=== PATIENT | male | born 1960 | race American Indian/Alaskan Native ===

== ENCOUNTER 2019-12-24 17:08 | Emergency (ER) | payer MEDICAID, OTHER ==
[2019-12-24 17:47] VITALS: BP 127/66; PULSE 66
--- NOTE | 2019-12-24 18:08 | EDM.PDOC ---
<GabriellejadShwetha - Last Filed: 12/24/19 18:03> ED HPI GENERAL MEDICAL PROBLEM - General Chief Complaint: Lower Extremity Injury/Pain Stated Complaint: SORE ON FOOT Time Seen by Provider: 12/24/19 18:03 Source of Information: Reports: Patient History Limitations: Reports: No Limitations - History of Present Illness INITIAL COMMENTS - FREE TEXT/NARRATIVE: Patient presents to the ED accompanied by law enforcement as an inmate at a facility with concerns of a wound to his plantar surface of his right foot. The patient states this has been present for approximately 1 month. It is causing pain with weight bearing. The patient is a diabetic. He states that he has been on insulin. He reports blood sugars in the 170's. The patient also reports numbness over the dorsal surface of his left hand. He states that the numbness has been present since he had a procedure on his hand for a cellulitis. The patient denies fevers, chills. Onset: Other (1 month) Location: Reports: Lower Extremity, Right (plantar surface of base of right MTPs ) Improves with: Reports: None Worsens with: Reports: None Context: Reports: Other (diabetic) Hand Pain Score (Numeric/FACES): 7 - Related Data Allergies Allergy/AdvReac Type Severity Reaction Status Date / Time ibuprofen Allergy Itching Unverified 12/24/19 17:33 Home Meds: Home Meds Aspirin [Lesley Chewable Aspirin] 81 mg PO DAILY 01/25/14 [History] Lisinopril 20 mg PO DAILY 01/25/14 [History] metFORMIN [Glucophage] 1,000 mg PO BID 01/25/14 [History] Gabapentin [Neurontin] 600 mg PO TID 07/27/14 [History] Past Medical History Cardiovascular History: Reports: Hypertension Psychiatric History: Reports: Addiction Endocrine/Metabolic History: Reports: Diabetes, Type II Social & Family History - Family History Family Medical History: Noncontributory - Tobacco Use Smoking Status *Q: Current Every Day Smoker Years of Tobacco use: 40 Packs/Tins Daily: 0.5 - Caffeine Use Caffeine Use: Reports: Tea - Recreational Drug Use Recreational Drug Use: Yes Drug Use in Last 12 Months: Yes Recreational Drug Type: Reports: Oxycodone Recreational Drug Use Frequency: Not Used In Over 2 Months Review of Systems - Review of Systems Review Of Systems: Comprehensive ROS is negative, except as noted in HPI. ED EXAM, GENERAL - Physical Exam Exam: See Below Exam Limited By: No Limitations General Appearance: Alert, No Apparent Distress Head: Atraumatic, Normocephalic Respiratory/Chest: No Respiratory Distress, Lungs Clear, Normal Breath Sounds Cardiovascular: Normal Peripheral Pulses, Regular Rate, Rhythm, No Edema, No Murmur Neurological: Alert, Oriented, Sensory/Motor Deficit (sensory deficit over dorsal surface of left hand, motor intact) Psychiatric: Normal Affect, Normal Mood Skin Exam: Warm, Dry, Intact Course - Vital Signs Last Recorded V/S: Last Vital Signs Temp 97.8 F 12/24/19 17:29 Pulse 66 12/24/19 17:29 Resp 18 12/24/19 17:29 BP 127/66 12/24/19 17:29 Pulse Ox 100 12/24/19 17:29 - Orders/Labs/Meds Orders: Active Orders 24 hr Category Date Time Status Blood Glucose Check, Bedside [RC] ONETIME Care 12/24/19 18:02 Active Labs: Bedside glucose 172 Departure - Departure Time of Disposition: 18:13 Disposition: Home, Self-Care 01 Condition: Fair Clinical Impression: Diabetic foot ulcer Qualifiers: Diabetic foot ulcer location: midfoot Diabetes mellitus type: type 2 Laterality : right Non-pressure ulcer stage: limited to breakdown of skin Qualified Code(s) : E11.621 - Type 2 diabetes mellitus with foot ulcer - Discharge Information *PRESCRIPTION DRUG MONITORING PROGRAM REVIEWED*: Not Applicable *COPY OF PRESCRIPTION DRUG MONITORING REPORT IN PATIENT TANG: Not Applicable Instructions: Diabetes Mellitus and Foot Care Forms: ED Department Discharge Additional Instructions: Apply bactroban to area 1 time daily and apply bandage over. Keep area clean and dry. Follow-up with a diabetic nurse for foot care within the next 2-3 weeks. Ensure adequate control of blood sugars. Blood sugar control will aid in the healing of skin wounds. Numbness to surface of hand may be permanent due to procedure to remove infected tissue. If issue continues may need to consult with prior surgeon. Sepsis Event Note - Evaluation Sepsis Screening Result: No Definite Risk - Focused Exam Vital Signs: Vital Signs Temp Pulse Resp BP Pulse Ox 12/24/19 17:29 97.8 F 66 18 127/66 100 Date Exam was Performed: 12/24/19 Time Exam was Performed: 18:03 <Loc Ribeiro - Last Filed: 12/24/19 18:26> ED EXAM, GENERAL - Physical Exam Ears: Normal External Exam Throat/Mouth: Normal Voice Neck: Full Range of Motion Skin Exam: Other (Diabetic foot ulcer palantar surface base great toe righ tfoot, 2x2 callous 1x1 shallow clean ulcer). No: Intact Course - Re-Assessments/Exams Free Text/Narrative Re-Assessment/Exam: 12/24/19 18:20 [facility] [place] [facility] Final Radiology Report Call: [phone] assistance Online chat: [email or web address] Name: LAN DUMONT Age: 24Years M Date: 12/24/2019 SSN: -- : 08/08/1995 Study: XR CHEST 2 VIEWS FRONTAL & LAT Requesting Physician: LOC RIBEIRO Images: 2 Addl Studies: Provided Clinical History: Contrast: Contrast Medium: Contrast Amount: Contrast Method: CONFIDENTIALITY STATEMENT This report is intended only for use by the referring physician, and only in accordance with law. If you received this in error, call [phone]. Page 1 of 1 PROCEDURE INFORMATION: Exam: XR Chest, 2 Views Exam date and time: 12/24/2019 5:30 PM Age: 24 years old Clinical indication: Chest pain TECHNIQUE: Imaging protocol: XR of the chest Views: 2 views. COMPARISON: CR CHEST 1 VIEW 09/09/2008 11:26 AM FINDINGS: Lungs: Unremarkable. No consolidation. Pleural space: Unremarkable. No pleural effusion. No pneumothorax. Heart/Mediastinum: Unremarkable. No cardiomegaly. Bones/joints: Unremarkable. IMPRESSION: No acute findings. Thank you for allowing us to participate in the care of your patient. Dictated and Authenticated by: Chema Bauman DO 12/24/2019 5:51 PM Central Time ([place] & [place] Sepsis Event Note - Focused Exam Date Exam was Performed: 12/24/19 Time Exam was Performed: 18:20
[2019-12-24] MEDS ORDERED: Ibuprofen 400 MG Tab PO ONE (18:26)
== END 2019-12-24 18:34 | disposition home or self-care (01) ==
LOC: DL.ED 17:08
DX: E11.621 Type 2 diabetes mellitus with foot ulcer (principal); L97.511 Non-pressure chronic ulcer of other part of right foot limited to breakdown of skin; Z79.4 Long term (current) use of insulin; I10 Essential (primary) hypertension; F17.210 Nicotine dependence, cigarettes, uncomplicated; Z88.8 Allergy status to other drugs, medicaments and biological substances; Z79.82 Long term (current) use of aspirin; Z79.899 Other long term (current) drug therapy
CPT/HCPCS: 82962; 99283-25; A9270-GY

== ENCOUNTER 2022-04-03 01:15 | Emergency (ER) | payer MEDICAID, OTHER ==
[2022-04-03 04:00] VITALS: BP 178/90; PULSE 68
[2022-04-03 05:16] LABS: ANION GAP 12.5 mEq/L (7-13)
[2022-04-03] MEDS: fentaNYL 100 MCG/2 ML SDV IVPUSH ONE ×2 (05:35→07:36)
[2022-04-03] MEDS: cefTRIAXone 1 GM in Sodium Chloride 0.9% 50 ML IV ONE (07:36)
== END 2022-04-03 07:40 | disposition home or self-care (01) ==
LOC: DL.ED 01:15
DX: L03.031 Cellulitis of right toe (principal); M86.9 Osteomyelitis, unspecified; I10 Essential (primary) hypertension; E11.9 Type 2 diabetes mellitus without complications; Z20.822 Contact with and (suspected) exposure to COVID-19; Z79.899 Other long term (current) drug therapy
CPT/HCPCS: 36415; 71045; 73700; 80053; 83605; 83735; 85025; 87635; 96374; 96375; 96376; 99284; J0696; J3010; U0002

== ENCOUNTER 2022-12-18 22:01 | Emergency (ER) | payer MEDICAID ==
[2022-12-18] MEDS: Sodium Chloride 0.9% 1,000 ML IV ONE (22:33)
[2022-12-18] MEDS: Sodium Chloride 0.9% 10 ML Syringe FLUSH PRN ×2 (22:40→22:42)
[2022-12-18] MEDS ORDERED: Piperacillin/Tazobactam 3.375 GM in Sodium Chloride 0.9% 100 ML IV ONE (22:41)
[2022-12-18 23:03] VITALS: BP 79/59; PULSE 96
[2022-12-18 23:06] LABS: ANION GAP 18.5 mEq/L (7-13)
[2022-12-19] MEDS: Sodium Chloride 0.9% 1,000 ML IV ONE (00:27)
== END 2022-12-19 00:41 ==
LOC: DL.ED 22:01
DX: A41.9 Sepsis, unspecified organism (principal); R65.20 Severe sepsis without septic shock; L03.115 Cellulitis of right lower limb; I10 Essential (primary) hypertension; E11.9 Type 2 diabetes mellitus without complications; Z88.8 Allergy status to other drugs, medicaments and biological substances; Z79.899 Other long term (current) drug therapy; Z79.4 Long term (current) use of insulin
CPT/HCPCS: 36415; 80053; 82947; 83605; 85025; 87040; 87077; 96365; 96367; 99285; 99285-25; J2543; J3370; J3490; J7030; J7050

== ENCOUNTER 2023-02-15 11:48 | Inpatient (IN) | payer MEDICAID ==
[2023-02-15] MEDS ORDERED: Acetaminophen 325 MG Tab PO PRN (13:25)
[2023-02-15] MEDS ORDERED: Bisacodyl 5 MG Tab PO PRN (13:25)
[2023-02-15] MEDS ORDERED: Ondansetron 4 MG/2 ML SDV IVPUSH PRN (13:25)
[2023-02-15] MEDS ORDERED: Docusate Sodium 100 MG Cap PO PRN (13:25)
[2023-02-15] MEDS ORDERED: Polyethylene Glycol 3350 Powder 17 GM Packet PO PRN (13:25)
[2023-02-15] MEDS ORDERED: 50% Dextrose in Water 50 ML Syringe IVPUSH PRN (13:34)
[2023-02-15] MEDS ORDERED: Glucagon,Human Recombinant 1 MG Vial IM PRN (13:34)
[2023-02-15] MEDS: Gabapentin 300 MG Cap PO SCH ×2 (14:03→21:01)
[2023-02-15] MEDS: Ibuprofen 200 MG Tab PO PRN ×2 (14:04→20:09)
[2023-02-15] MEDS: Lisinopril 10 MG Tab PO SCH (15:09)
[2023-02-15] MEDS ORDERED: Insulin Lispro 100 Units/ML 3 ML Vial SUBCUT SCH (16:00)
[2023-02-15] MEDS: Insulin Lispro 100 Units/ML 3 ML Vial SUBCUT SCH ×2 (17:10→21:06)
[2023-02-15] MEDS: Rosuvastatin 10 MG Tab PO SCH (21:01)
[2023-02-15] MEDS: Insulin Glarg,Human.Rec.Analog 100 Unit/ML SUBCUT SCH (21:06)
[2023-02-16] MEDS: Omeprazole 20 MG Cap.CR PO SCH (06:20)
[2023-02-16] MEDS: Gabapentin 300 MG Cap PO SCH ×3 (08:24→20:36)
[2023-02-16] MEDS: Lisinopril 10 MG Tab PO SCH (08:24)
[2023-02-16] MEDS: Aspirin 81 MG Tab.Chew PO SCH (08:25)
[2023-02-16] MEDS: Ibuprofen 200 MG Tab PO PRN ×2 (08:25→18:28)
[2023-02-16] MEDS: Furosemide 40 MG Tab PO SCH (08:25)
[2023-02-16] MEDS: Insulin Lispro 100 Units/ML 3 ML Vial SUBCUT SCH ×7 (08:27→20:40)
[2023-02-16] MEDS: Enoxaparin 40 MG/0.4 ML Syringe SUBCUT SCH (09:18)
[2023-02-16] MEDS: oxyCODONE 5 MG Tab PO PRN ×2 (12:36→19:27)
[2023-02-16] MEDS: Rosuvastatin 10 MG Tab PO SCH (20:36)
[2023-02-16] MEDS: Insulin Glarg,Human.Rec.Analog 100 Unit/ML SUBCUT SCH (20:41)
[2023-02-17] MEDS: Omeprazole 20 MG Cap.CR PO SCH ×2 (04:40→05:05)
[2023-02-17] MEDS: oxyCODONE 5 MG Tab PO PRN ×4 (04:40→21:57)
[2023-02-17] MEDS: Lisinopril 10 MG Tab PO SCH (08:23)
[2023-02-17] MEDS: Aspirin 81 MG Tab.Chew PO SCH (08:23)
[2023-02-17] MEDS: Gabapentin 300 MG Cap PO SCH ×3 (08:24→20:39)
[2023-02-17] MEDS: Insulin Lispro 100 Units/ML 3 ML Vial SUBCUT SCH ×7 (08:24→20:52)
[2023-02-17] MEDS: Furosemide 40 MG Tab PO SCH (08:24)
[2023-02-17] MEDS: Enoxaparin 40 MG/0.4 ML Syringe SUBCUT SCH (08:24)
[2023-02-17] MEDS: Ibuprofen 200 MG Tab PO PRN (13:35)
[2023-02-17] MEDS: Rosuvastatin 10 MG Tab PO SCH (20:39)
[2023-02-17] MEDS: Insulin Glarg,Human.Rec.Analog 100 Unit/ML SUBCUT SCH (20:50)
[2023-02-18] MEDS: oxyCODONE 5 MG Tab PO PRN ×2 (05:18→13:13)
[2023-02-18] MEDS: Omeprazole 20 MG Cap.CR PO SCH (05:18)
[2023-02-18] MEDS: Acetaminophen 500 MG Tab PO PRN (08:56)
[2023-02-18] MEDS: Aspirin 81 MG Tab.Chew PO SCH (08:56)
[2023-02-18] MEDS: Gabapentin 300 MG Cap PO SCH ×3 (08:56→20:29)
[2023-02-18] MEDS: Furosemide 40 MG Tab PO SCH (08:56)
[2023-02-18] MEDS: Lisinopril 10 MG Tab PO SCH (08:57)
[2023-02-18] MEDS: Enoxaparin 40 MG/0.4 ML Syringe SUBCUT SCH (08:58)
[2023-02-18] MEDS: Insulin Lispro 100 Units/ML 3 ML Vial SUBCUT SCH ×7 (08:59→20:43)
[2023-02-18] MEDS: Rosuvastatin 10 MG Tab PO SCH (20:28)
[2023-02-18] MEDS: Insulin Glarg,Human.Rec.Analog 100 Unit/ML SUBCUT SCH (20:44)
[2023-02-19] MEDS: oxyCODONE 5 MG Tab PO PRN ×3 (03:09→19:39)
[2023-02-19] MEDS: Ibuprofen 200 MG Tab PO PRN (04:06)
[2023-02-19] MEDS: Omeprazole 20 MG Cap.CR PO SCH ×2 (04:07→05:22)
[2023-02-19] MEDS: Enoxaparin 40 MG/0.4 ML Syringe SUBCUT SCH (08:20)
[2023-02-19] MEDS: Insulin Lispro 100 Units/ML 3 ML Vial SUBCUT SCH ×7 (08:20→21:01)
[2023-02-19] MEDS: Acetaminophen 500 MG Tab PO PRN ×2 (08:21→18:03)
[2023-02-19] MEDS: Aspirin 81 MG Tab.Chew PO SCH (08:22)
[2023-02-19] MEDS: Lisinopril 10 MG Tab PO SCH (08:22)
[2023-02-19] MEDS: Furosemide 40 MG Tab PO SCH (08:22)
[2023-02-19] MEDS: Gabapentin 300 MG Cap PO SCH ×3 (08:23→20:57)
[2023-02-19] MEDS: Rosuvastatin 10 MG Tab PO SCH (20:57)
[2023-02-19] MEDS: Insulin Glarg,Human.Rec.Analog 100 Unit/ML SUBCUT SCH (20:59)
[2023-02-20] MEDS: oxyCODONE 5 MG Tab PO PRN ×3 (04:34→20:17)
[2023-02-20] MEDS: Omeprazole 20 MG Cap.CR PO SCH ×2 (04:35→06:25)
[2023-02-20 06:17] LABS: BASOPHILS PERCENT AUTO 0.1 % (0.0-1.0); EOSINOPHILS PERCENT AUTO 4.9 % (1.0-3.0); HEMATOCRIT 36.3 % (40.0-54.0); HEMOGLOBIN 11.8 g/dL (14.0-18.0); LYMPHOCYTES PERCENT AUTO 35.8 % (20.5-50.1); MEAN CORPUSCULAR HEMOGLOBIN 28.9 pg (27.0-34.0); MEAN CORPUSCULAR HGB CONC 32.5 g/dL (33.0-35.0); MONOCYTES PERCENT AUTO 10.2 % (2-8); PLATELET COUNT,PLT 317 10^3/uL (150-450); RED BLOOD CELL COUNT 4.08 10^6/uL (4.6-6.2)
[2023-02-20 06:30] LABS: ANION GAP 9.8 mEq/L (7-13); CALCIUM 8.7 mg/dL (8.5-10.1); CREATININE 1.01 mg/dL (0.70-1.30); EST CRCL DRUG DOSING (CG) 82.17 mL/min; POTASSIUM,K 4.8 mmol/L (3.5-5.1)
[2023-02-20] MEDS: Lisinopril 10 MG Tab PO SCH (08:19)
[2023-02-20] MEDS: Aspirin 81 MG Tab.Chew PO SCH (08:19)
[2023-02-20] MEDS: Furosemide 40 MG Tab PO SCH (08:21)
[2023-02-20] MEDS: Gabapentin 300 MG Cap PO SCH ×3 (08:21→20:17)
[2023-02-20] MEDS: Insulin Lispro 100 Units/ML 3 ML Vial SUBCUT SCH ×7 (08:22→21:20)
[2023-02-20] MEDS: Enoxaparin 40 MG/0.4 ML Syringe SUBCUT SCH (08:22)
[2023-02-20] MEDS ORDERED: Non-Formulary Medication 1 Each (Empagliflozin [Jardiance] 25 MG Tablet) PO SCH (09:00)
[2023-02-20] MEDS: Rosuvastatin 10 MG Tab PO SCH (20:17)
[2023-02-20] MEDS: Insulin Glarg,Human.Rec.Analog 100 Unit/ML SUBCUT SCH (21:21)
[2023-02-21] MEDS: oxyCODONE 5 MG Tab PO PRN ×3 (02:04→23:42)
[2023-02-21] MEDS: Omeprazole 20 MG Cap.CR PO SCH ×2 (02:04→05:34)
[2023-02-21] MEDS: Insulin Lispro 100 Units/ML 3 ML Vial SUBCUT SCH ×7 (07:57→21:00)
[2023-02-21] MEDS: Enoxaparin 40 MG/0.4 ML Syringe SUBCUT SCH (08:00)
[2023-02-21] MEDS: Furosemide 40 MG Tab PO SCH (08:00)
[2023-02-21] MEDS: Gabapentin 300 MG Cap PO SCH ×3 (08:00→20:57)
[2023-02-21] MEDS: Lisinopril 10 MG Tab PO SCH (08:00)
[2023-02-21] MEDS: Aspirin 81 MG Tab.Chew PO SCH (08:00)
[2023-02-21] MEDS: Rosuvastatin 10 MG Tab PO SCH (20:58)
[2023-02-21] MEDS: Insulin Glarg,Human.Rec.Analog 100 Unit/ML SUBCUT SCH (21:01)
[2023-02-22] MEDS: oxyCODONE 5 MG Tab PO PRN ×2 (04:47→10:23)
[2023-02-22] MEDS: Omeprazole 20 MG Cap.CR PO SCH ×2 (04:48→05:14)
[2023-02-22] MEDS: Gabapentin 300 MG Cap PO SCH (08:13)
[2023-02-22] MEDS: Aspirin 81 MG Tab.Chew PO SCH (08:14)
[2023-02-22] MEDS: Lisinopril 10 MG Tab PO SCH (08:14)
[2023-02-22 08:17] VITALS: BP 150/75
[2023-02-22] MEDS: Furosemide 40 MG Tab PO SCH (08:17)
[2023-02-22 08:18] VITALS: PULSE 72
[2023-02-22] MEDS: Enoxaparin 40 MG/0.4 ML Syringe SUBCUT SCH (08:18)
[2023-02-22] MEDS: Insulin Lispro 100 Units/ML 3 ML Vial SUBCUT SCH ×2 (08:33)
== END 2023-02-22 10:30 | disposition home or self-care (01) | DRG 561 ==
LOC: UNDOADMIN 12:18 → DL.MS 12:18
PROVIDERS: ADMIT Internal Medicine; ATTEND Internal Medicine
DX: Z47.81 Encounter for orthopedic aftercare following surgical amputation (principal); E11.65 Type 2 diabetes mellitus with hyperglycemia; I10 Essential (primary) hypertension; E78.5 Hyperlipidemia, unspecified; E11.42 Type 2 diabetes mellitus with diabetic polyneuropathy; F17.210 Nicotine dependence, cigarettes, uncomplicated; Z79.82 Long term (current) use of aspirin; Z79.899 Other long term (current) drug therapy; Z86.19 Personal history of other infectious and parasitic diseases; Z98.890 Other specified postprocedural states
CPT/HCPCS: 36415; 80048; 82947; 85025; 97161-GP; 97165-GO; 97530-GO; 97530-GP; 99222; 99233; 99238; A9270-GY; J1650; J1815-GY

== ENCOUNTER 2023-04-13 09:28 | Emergency (ER) | payer MEDICAID ==
[2023-04-13] MEDS ORDERED: Ondansetron 4 MG/2 ML SDV IV ONE ×2 (09:31→11:52)
[2023-04-13] MEDS ORDERED: Sodium Chloride 0.9% 1,000 ML IV ONE ×3 (09:31→10:54)
[2023-04-13] MEDS ORDERED: Norepinephrine Bit/D5W Premix 250 ML IV SCH (09:45)
[2023-04-13 09:56] LABS: BASOPHILS PERCENT AUTO 0.2 % (0.0-1.0); HEMATOCRIT 27.4 % (40.0-54.0); LYMPHOCYTES PERCENT AUTO 40.5 % (20.5-50.1); MEAN CORPUSCULAR HEMOGLOBIN 29.7 pg (27.0-34.0); MEAN CORPUSCULAR HGB CONC 32.8 g/dL (33.0-35.0); MEAN CORPUSCULAR VOLUME 90.4 fL (80-100); MONOCYTES PERCENT AUTO 9.2 % (2-8); NEUTROPHILS PERCENT AUTO 47.1 % (42.2-75.2); PLATELET COUNT,PLT 166 10^3/uL (150-450); RED BLOOD CELL COUNT 3.03 10^6/uL (4.6-6.2); WHITE BLOOD CELL COUNT,WBC 10.1 10^3/uL (5.0-10.0)
[2023-04-13 10:10] LABS: PROTHROMBIN TIME 10.3 SEC (9.0-12.0); PTT,PARTIAL THROMBOPLSTIN TIME 26.1 SEC (22.0-34.0)
[2023-04-13 10:12] LABS: B-TYPE NATRIURETIC PEPTIDE,BNP 38 pg/ml (0-100)
[2023-04-13] MEDS ORDERED: Midazolam 1 MG/ML 2 ML SDV IVPUSH ONE (10:16)
[2023-04-13 10:19] LABS: APPEARANCE,URINE CLEAR (CLEAR); BILIRUBIN,URINE NEGATIVE (NEGATIVE); COLOR,URINE YELLOW (YELLOW); GLUCOSE,URINE 500 (NEGATIVE); KETONES,URINE NEGATIVE (NEGATIVE); LEUKOCYTE ESTERASE,URINE NEGATIVE (NEGATIVE); NITRITE,URINE NEGATIVE (NEGATIVE); OCCULT BLOOD,URINE TRACE-INTACT (NEGATIVE); PROTEIN,URINE >=300 (NEGATIVE); UROBILINOGEN,URINE 0.2 mg/dL (0.2-1.0)
[2023-04-13] MEDS ORDERED: Lidocaine 1% 5 ML VIAL ONE ×2 (10:20→10:27)
[2023-04-13 10:22] LABS: AMPHETAMINES,URINE NEGATIVE (NEGATIVE); BARBITURATES,URINE NEGATIVE (NEGATIVE); BENZODIAZEPINE,URINE NEGATIVE (NEGATIVE); MDMA (ECSTASY), URINE NEGATIVE (NEGATIVE); METHADONE,URINE NEGATIVE (NEGATIVE); METHAMPHETAMINES,URINE NEGATIVE (NEGATIVE); OPIATES,URINE NEGATIVE (NEGATIVE); OXYCODONE,URINE NEGATIVE (NEGATIVE); PHENCYCLIDINE,URINE NEGATIVE (NEGATIVE); TCA,URINE NEGATIVE (NEGATIVE)
[2023-04-13 10:25] LABS: ALANINE AMINOTRANSFERASE,ALT 16 U/L (16-63); ALKALINE PHOSPHATASE 58 U/L (46-116); ANION GAP 15.2 mEq/L (7-13); ASPARTATE AMNIOTRANSFERASE,AST 12 U/L (15-37); BILIRUBIN TOTAL 0.3 mg/dL (0.2-1.0); BLOOD UREA NITROGEN,BUN 23 mg/dL (7-18); BUN/CREATININE RATIO 15.1 (No establ ref range); CALCIUM 7.4 mg/dL (8.5-10.1); CARBON DIOXIDE,CO2 22 mmol/L (21-32); CHLORIDE,CL 103 mmol/L (98-107); CREATININE 1.52 mg/dL (0.70-1.30); LACTIC ACID 5.7 mmol/L (0.4-2.0); LIPASE 103 U/L (73-393); POTASSIUM,K 5.2 mmol/L (3.5-5.1); PROTEIN TOTAL,TP 5.5 g/dL (6.4-8.2); SODIUM,NA 135 mmol/L (136-145)
[2023-04-13 10:29] LABS: O2 DELIVERY DEVICE NON REBR MASK
[2023-04-13 10:30] LABS: A/G RATIO 0.57; ESTIMATED GFR 51 mL/min (>=60); ETHANOL BLOOD MEDICAL < 3 mg/dL (0); GLUCOSE RANDOM 409 mg/dL (70-99)
[2023-04-13 10:32] LABS: BASE EXCESS ARTERIAL -9 mmol/L ((-2)-(+3)); BICARBONATE,ARTERIAL 16.4 mmol/L (22-26); O2 SATURATION ARTERIAL 98 % (95-100); PCO2 ARTERIAL 35 mmHg (35-45); PH,ARTERIAL 7.29 (7.35-7.45); PO2 ARTERIAL 101 mmHg (70-100)
[2023-04-13 10:33] LABS: ALLEN TEST NOT PERFORMED
[2023-04-13 10:41] LABS: BACTERIA,URINE RARE /HPF (0-FEW/HPF); EPITHELIAL CELLS,URINE RARE /HPF (NOT SEEN); RBC,URINE 0-5 /HPF (0-5); WBC,URINE NOT SEEN /HPF (0-5/HPF)
[2023-04-13] MEDS ORDERED: Cefepime 2 GM Vial IVPUSH ONE (10:54)
[2023-04-13] MEDS ORDERED: 50% Dextrose in Water 50 ML Syringe IVPUSH PRN (10:54)
[2023-04-13] MEDS ORDERED: Glucagon,Human Recombinant 1 MG Vial IM PRN (10:54)
[2023-04-13] MEDS ORDERED: Ondansetron 4 MG/2 ML SDV ONE (11:52)
[2023-04-13] MEDS ORDERED: Lidocaine 1% 5 ML VIAL INJECT ONE (12:15)
[2023-04-13 12:42] VITALS: BP 66/48; PULSE 104
== END 2023-04-13 12:12 ==
LOC: DL.ED 09:28
DX: A41.9 Sepsis, unspecified organism (principal); R65.21 Severe sepsis with septic shock; J94.2 Hemothorax; E78.00 Pure hypercholesterolemia, unspecified; I10 Essential (primary) hypertension; E11.9 Type 2 diabetes mellitus without complications; Z79.899 Other long term (current) drug therapy; Z79.4 Long term (current) use of insulin; Z79.82 Long term (current) use of aspirin
CPT/HCPCS: 32551; 36415; 36600; 51702; 71045; 80053; 80305-QW; 80307; 81001; 82009; 82803; 83605; 83690; 83880; 84145; 84484; 85025; 85610; 85730; 87040; 93005; 96365; 96366; 96367; 96375; 96376; 99285-25; J0692; J2250; J2405; J3370; J3490; J7030; J7040

== ENCOUNTER 2023-04-24 11:38 | Inpatient (IN) | payer MEDICAID ==
[2023-04-24] MEDS ORDERED: 50% Dextrose in Water 50 ML Syringe IVPUSH PRN (14:38)
[2023-04-24] MEDS ORDERED: Glucagon,Human Recombinant 1 MG Vial IM PRN (14:38)
[2023-04-24] MEDS ORDERED: Ondansetron 4 MG Tab.DIS PO PRN (14:42)
[2023-04-24] MEDS ORDERED: Albuterol/Ipratropium 3.0-0.5 MG/3 ML Neb Soln NEB PRN (14:42)
[2023-04-24] MEDS ORDERED: Gabapentin 300 MG Cap PO SCH (14:45)
[2023-04-24] MEDS: Acetaminophen 325 MG Tab PO PRN ×2 (15:31→20:53)
[2023-04-24] MEDS: Gabapentin 300 MG Cap PO SCH ×2 (15:31→20:53)
[2023-04-24] MEDS ORDERED: Insulin Lispro 100 Units/ML 3 ML Vial SUBCUT SCH (16:00)
[2023-04-24] MEDS: oxyCODONE 5 MG Tab PO PRN ×2 (16:24→22:19)
[2023-04-24] MEDS: Sennosides/Docusate Sodium 50-8.6 MG Tab PO SCH (20:48)
[2023-04-24] MEDS: atorvaSTATin 20 MG Tab PO SCH (20:53)
[2023-04-24] MEDS: Metoprolol Tartrate 25 MG Tab PO SCH (20:54)
[2023-04-24] MEDS: Insulin Glarg,Human.Rec.Analog 100 Unit/ML SUBCUT SCH (20:56)
[2023-04-25] MEDS: oxyCODONE 5 MG Tab PO PRN ×4 (05:17→23:35)
[2023-04-25] MEDS: Pantoprazole 40 MG Tab.CR PO SCH (05:17)
[2023-04-25 06:27] LABS: BASOPHILS PERCENT AUTO 0.1 % (0.0-1.0); EOSINOPHILS PERCENT AUTO 3.8 % (1.0-3.0); HEMATOCRIT 31.1 % (40.0-54.0); HEMOGLOBIN 9.9 g/dL (14.0-18.0); LYMPHOCYTES PERCENT AUTO 14.2 % (20.5-50.1); MEAN CORPUSCULAR HGB CONC 31.8 g/dL (33.0-35.0); MEAN CORPUSCULAR VOLUME 88.1 fL (80-100); MONOCYTES PERCENT AUTO 9.4 % (2-8); NEUTROPHILS PERCENT AUTO 72.5 % (42.2-75.2); PLATELET COUNT,PLT 550 10^3/uL (150-450); RED BLOOD CELL COUNT 3.53 10^6/uL (4.6-6.2); WHITE BLOOD CELL COUNT,WBC 9.4 10^3/uL (5.0-10.0)
[2023-04-25 06:48] LABS: A/G RATIO 0.42; ALBUMIN 2.2 g/dL (3.4-5.0); ANION GAP 13.4 mEq/L (7-13); BILIRUBIN TOTAL 0.6 mg/dL (0.2-1.0); BUN/CREATININE RATIO 19.4 (No establ ref range); CALCIUM 8.2 mg/dL (8.5-10.1); CREATININE 1.08 mg/dL (0.70-1.30); EST CRCL DRUG DOSING (CG) 67.73 mL/min; MAGNESIUM 2.2 mg/dL (1.8-2.4); POTASSIUM,K 4.4 mmol/L (3.5-5.1); PROTEIN TOTAL,TP 7.5 g/dL (6.4-8.2)
[2023-04-25] MEDS: Potassium Chloride 10 MEQ Tab.ER PO SCH (08:37)
[2023-04-25] MEDS: Clopidogrel 75 MG Tab PO SCH (08:38)
[2023-04-25] MEDS: Insulin Lispro 100 Units/ML 3 ML Vial SUBCUT SCH ×3 (08:38→16:45)
[2023-04-25] MEDS: Gabapentin 300 MG Cap PO SCH ×3 (08:38→20:49)
[2023-04-25] MEDS: Empagliflozin 25 MG Tab PO SCH (08:38)
[2023-04-25] MEDS: Aspirin 81 MG Tab.EC PO SCH (08:38)
[2023-04-25] MEDS: Metoprolol Tartrate 25 MG Tab PO SCH ×2 (08:43→20:50)
[2023-04-25] MEDS: Acetaminophen 325 MG Tab PO PRN (14:34)
[2023-04-25] MEDS: atorvaSTATin 20 MG Tab PO SCH (20:49)
[2023-04-25] MEDS: Insulin Glarg,Human.Rec.Analog 100 Unit/ML SUBCUT SCH (20:52)
[2023-04-25] MEDS: Sennosides/Docusate Sodium 50-8.6 MG Tab PO SCH (23:22)
[2023-04-26] MEDS: Pantoprazole 40 MG Tab.CR PO SCH (05:49)
[2023-04-26] MEDS: oxyCODONE 5 MG Tab PO PRN ×3 (05:49→18:28)
[2023-04-26] MEDS: Empagliflozin 25 MG Tab PO SCH (08:43)
[2023-04-26] MEDS: Metoprolol Tartrate 25 MG Tab PO SCH ×2 (08:44→20:30)
[2023-04-26] MEDS: Aspirin 81 MG Tab.EC PO SCH (08:46)
[2023-04-26] MEDS: Potassium Chloride 10 MEQ Tab.ER PO SCH (08:47)
[2023-04-26] MEDS: Furosemide 40 MG Tab PO SCH (08:47)
[2023-04-26] MEDS: Clopidogrel 75 MG Tab PO SCH (08:48)
[2023-04-26] MEDS: Gabapentin 300 MG Cap PO SCH ×3 (08:48→20:29)
[2023-04-26] MEDS: Insulin Lispro 100 Units/ML 3 ML Vial SUBCUT SCH ×3 (08:52→17:26)
[2023-04-26] MEDS: Sennosides/Docusate Sodium 50-8.6 MG Tab PO SCH (20:29)
[2023-04-26] MEDS: atorvaSTATin 20 MG Tab PO SCH (20:30)
[2023-04-26] MEDS: Insulin Glarg,Human.Rec.Analog 100 Unit/ML SUBCUT SCH (20:47)
[2023-04-27] MEDS: oxyCODONE 5 MG Tab PO PRN ×4 (00:36→19:32)
[2023-04-27] MEDS: Pantoprazole 40 MG Tab.CR PO SCH (06:40)
[2023-04-27] MEDS: Aspirin 81 MG Tab.EC PO SCH (08:16)
[2023-04-27] MEDS: Empagliflozin 25 MG Tab PO SCH (08:16)
[2023-04-27] MEDS: Potassium Chloride 10 MEQ Tab.ER PO SCH (08:16)
[2023-04-27] MEDS: Gabapentin 300 MG Cap PO SCH ×3 (08:16→21:59)
[2023-04-27] MEDS: Clopidogrel 75 MG Tab PO SCH (08:16)
[2023-04-27] MEDS: Insulin Lispro 100 Units/ML 3 ML Vial SUBCUT SCH ×3 (08:17→17:07)
[2023-04-27] MEDS: Metoprolol Tartrate 25 MG Tab PO SCH ×2 (08:17→22:00)
[2023-04-27] MEDS: Acetaminophen 325 MG Tab PO PRN ×2 (10:28→21:56)
[2023-04-27] MEDS: Insulin Glarg,Human.Rec.Analog 100 Unit/ML SUBCUT SCH (21:55)
[2023-04-27] MEDS: Sennosides/Docusate Sodium 50-8.6 MG Tab PO SCH (21:58)
[2023-04-27] MEDS: atorvaSTATin 20 MG Tab PO SCH (21:58)
[2023-04-28] MEDS: oxyCODONE 5 MG Tab PO PRN ×4 (02:48→21:04)
[2023-04-28] MEDS: Pantoprazole 40 MG Tab.CR PO SCH (06:18)
[2023-04-28] MEDS: Acetaminophen 325 MG Tab PO PRN (06:18)
[2023-04-28] MEDS: Potassium Chloride 10 MEQ Tab.ER PO SCH (08:31)
[2023-04-28] MEDS: Furosemide 40 MG Tab PO SCH (08:31)
[2023-04-28] MEDS: Metoprolol Tartrate 25 MG Tab PO SCH ×2 (08:31→21:03)
[2023-04-28] MEDS: Empagliflozin 25 MG Tab PO SCH (08:31)
[2023-04-28] MEDS: Aspirin 81 MG Tab.EC PO SCH (08:31)
[2023-04-28] MEDS: Clopidogrel 75 MG Tab PO SCH (08:32)
[2023-04-28] MEDS: Gabapentin 300 MG Cap PO SCH ×3 (08:32→21:02)
[2023-04-28] MEDS: Insulin Lispro 100 Units/ML 3 ML Vial SUBCUT SCH ×3 (08:40→17:29)
[2023-04-28] MEDS: atorvaSTATin 20 MG Tab PO SCH (21:02)
[2023-04-28] MEDS: Sennosides/Docusate Sodium 50-8.6 MG Tab PO SCH (21:02)
[2023-04-28] MEDS: Insulin Glarg,Human.Rec.Analog 100 Unit/ML SUBCUT SCH (21:24)
[2023-04-29] MEDS: oxyCODONE 5 MG Tab PO PRN ×3 (02:56→20:17)
[2023-04-29] MEDS: Pantoprazole 40 MG Tab.CR PO SCH ×2 (04:29→05:11)
[2023-04-29] MEDS: Gabapentin 300 MG Cap PO SCH ×3 (08:57→20:17)
[2023-04-29] MEDS: Potassium Chloride 10 MEQ Tab.ER PO SCH (08:57)
[2023-04-29] MEDS: Metoprolol Tartrate 25 MG Tab PO SCH ×2 (08:58→20:18)
[2023-04-29] MEDS: Clopidogrel 75 MG Tab PO SCH (08:58)
[2023-04-29] MEDS: Aspirin 81 MG Tab.EC PO SCH (08:58)
[2023-04-29] MEDS: Empagliflozin 25 MG Tab PO SCH (08:58)
[2023-04-29] MEDS: Insulin Lispro 100 Units/ML 3 ML Vial SUBCUT SCH ×3 (09:02→19:53)
[2023-04-29] MEDS: Sennosides/Docusate Sodium 50-8.6 MG Tab PO SCH (20:17)
[2023-04-29] MEDS: atorvaSTATin 20 MG Tab PO SCH (20:17)
[2023-04-29] MEDS: Insulin Glarg,Human.Rec.Analog 100 Unit/ML SUBCUT SCH (20:18)
[2023-04-30] MEDS: oxyCODONE 5 MG Tab PO PRN ×4 (03:09→21:17)
[2023-04-30] MEDS: Pantoprazole 40 MG Tab.CR PO SCH (05:57)
[2023-04-30] MEDS: Metoprolol Tartrate 25 MG Tab PO SCH ×2 (09:02→21:16)
[2023-04-30] MEDS: Aspirin 81 MG Tab.EC PO SCH (09:02)
[2023-04-30] MEDS: Gabapentin 300 MG Cap PO SCH ×3 (09:04→21:17)
[2023-04-30] MEDS: Empagliflozin 25 MG Tab PO SCH (09:04)
[2023-04-30] MEDS: Clopidogrel 75 MG Tab PO SCH (09:04)
[2023-04-30] MEDS: Potassium Chloride 10 MEQ Tab.ER PO SCH (09:05)
[2023-04-30] MEDS: Insulin Lispro 100 Units/ML 3 ML Vial SUBCUT SCH ×3 (09:11→17:19)
[2023-04-30] MEDS: Insulin Glarg,Human.Rec.Analog 100 Unit/ML SUBCUT SCH (21:15)
[2023-04-30] MEDS: atorvaSTATin 20 MG Tab PO SCH (21:16)
[2023-04-30] MEDS: Sennosides/Docusate Sodium 50-8.6 MG Tab PO SCH (21:17)
[2023-05-01] MEDS: Pantoprazole 40 MG Tab.CR PO SCH ×2 (03:20→07:47)
[2023-05-01] MEDS: oxyCODONE 5 MG Tab PO PRN ×4 (03:20→21:37)
[2023-05-01 06:42] LABS: BASOPHILS PERCENT AUTO 0.1 % (0.0-1.0); EOSINOPHILS PERCENT AUTO 1.1 % (1.0-3.0); HEMATOCRIT 31.1 % (40.0-54.0); HEMOGLOBIN 9.8 g/dL (14.0-18.0); LYMPHOCYTES PERCENT AUTO 16.5 % (20.5-50.1); MEAN CORPUSCULAR HEMOGLOBIN 27.5 pg (27.0-34.0); MEAN CORPUSCULAR HGB CONC 31.5 g/dL (33.0-35.0); MEAN CORPUSCULAR VOLUME 87.4 fL (80-100); MONOCYTES PERCENT AUTO 15.5 % (2-8); NEUTROPHILS PERCENT AUTO 66.8 % (42.2-75.2); PLATELET COUNT,PLT 498 10^3/uL (150-450); RED BLOOD CELL COUNT 3.56 10^6/uL (4.6-6.2); WHITE BLOOD CELL COUNT,WBC 8.4 10^3/uL (5.0-10.0)
[2023-05-01 07:07] LABS: A/G RATIO 0.36; ALBUMIN 2.1 g/dL (3.4-5.0); ANION GAP 12.9 mEq/L (7-13); BILIRUBIN TOTAL 0.8 mg/dL (0.2-1.0); CALCIUM 8.4 mg/dL (8.5-10.1); CREATININE 1.16 mg/dL (0.70-1.30); EST CRCL DRUG DOSING (CG) 63.06 mL/min; MAGNESIUM 2.3 mg/dL (1.8-2.4); POTASSIUM,K 3.9 mmol/L (3.5-5.1)
[2023-05-01] MEDS: Insulin Lispro 100 Units/ML 3 ML Vial SUBCUT SCH ×3 (08:26→17:18)
[2023-05-01] MEDS: Potassium Chloride 10 MEQ Tab.ER PO SCH (09:20)
[2023-05-01] MEDS: Aspirin 81 MG Tab.EC PO SCH (09:21)
[2023-05-01] MEDS: Empagliflozin 25 MG Tab PO SCH (09:21)
[2023-05-01] MEDS: Furosemide 40 MG Tab PO SCH (09:21)
[2023-05-01] MEDS: Clopidogrel 75 MG Tab PO SCH (09:21)
[2023-05-01] MEDS: Gabapentin 300 MG Cap PO SCH ×3 (09:22→21:47)
[2023-05-01] MEDS: Metoprolol Tartrate 25 MG Tab PO SCH ×2 (09:23→21:38)
[2023-05-01] MEDS: Insulin Glarg,Human.Rec.Analog 100 Unit/ML SUBCUT SCH (21:36)
[2023-05-01] MEDS: atorvaSTATin 20 MG Tab PO SCH (21:39)
[2023-05-02] MEDS: oxyCODONE 5 MG Tab PO PRN ×4 (03:41→23:02)
[2023-05-02] MEDS: Pantoprazole 40 MG Tab.CR PO SCH (06:33)
[2023-05-02] MEDS: Aspirin 81 MG Tab.EC PO SCH (08:00)
[2023-05-02] MEDS: Clopidogrel 75 MG Tab PO SCH (08:00)
[2023-05-02] MEDS: Empagliflozin 25 MG Tab PO SCH (08:00)
[2023-05-02] MEDS: Gabapentin 300 MG Cap PO SCH ×3 (08:00→23:06)
[2023-05-02] MEDS: Potassium Chloride 10 MEQ Tab.ER PO SCH (08:01)
[2023-05-02] MEDS: Metoprolol Tartrate 25 MG Tab PO SCH ×2 (08:01→23:01)
[2023-05-02] MEDS: Insulin Lispro 100 Units/ML 3 ML Vial SUBCUT SCH ×3 (08:02→17:01)
[2023-05-02] MEDS: Acetaminophen 325 MG Tab PO PRN ×2 (08:06→21:07)
[2023-05-02] MEDS: atorvaSTATin 20 MG Tab PO SCH (21:06)
[2023-05-02] MEDS: Insulin Glarg,Human.Rec.Analog 100 Unit/ML SUBCUT SCH (21:06)
[2023-05-03] MEDS: Pantoprazole 40 MG Tab.CR PO SCH (05:02)
[2023-05-03] MEDS: oxyCODONE 5 MG Tab PO PRN ×4 (05:02→23:37)
[2023-05-03] MEDS: Aspirin 81 MG Tab.EC PO SCH (09:40)
[2023-05-03] MEDS: Empagliflozin 25 MG Tab PO SCH (09:41)
[2023-05-03] MEDS: Potassium Chloride 10 MEQ Tab.ER PO SCH (09:41)
[2023-05-03] MEDS: Furosemide 40 MG Tab PO SCH (09:41)
[2023-05-03] MEDS: Metoprolol Tartrate 25 MG Tab PO SCH ×2 (09:43→22:34)
[2023-05-03] MEDS: Insulin Lispro 100 Units/ML 3 ML Vial SUBCUT SCH ×3 (09:44→16:52)
[2023-05-03] MEDS: Gabapentin 300 MG Cap PO SCH ×3 (10:09→22:34)
[2023-05-03] MEDS: Clopidogrel 75 MG Tab PO SCH (10:09)
[2023-05-03] MEDS: Acetaminophen 325 MG Tab PO PRN ×2 (15:02→22:49)
[2023-05-03] MEDS: atorvaSTATin 20 MG Tab PO SCH (22:34)
[2023-05-03] MEDS: Insulin Glarg,Human.Rec.Analog 100 Unit/ML SUBCUT SCH (22:36)
[2023-05-04] MEDS: oxyCODONE 5 MG Tab PO PRN ×2 (05:48→11:40)
[2023-05-04] MEDS: Pantoprazole 40 MG Tab.CR PO SCH (05:48)
[2023-05-04 07:39] VITALS: BP 136/74; PULSE 72
[2023-05-04] MEDS: Insulin Lispro 100 Units/ML 3 ML Vial SUBCUT SCH ×2 (08:12→12:14)
[2023-05-04] MEDS: Empagliflozin 25 MG Tab PO SCH (08:13)
[2023-05-04] MEDS: Gabapentin 300 MG Cap PO SCH (08:13)
[2023-05-04] MEDS: Potassium Chloride 10 MEQ Tab.ER PO SCH (08:13)
[2023-05-04] MEDS: Clopidogrel 75 MG Tab PO SCH (08:13)
[2023-05-04] MEDS: Aspirin 81 MG Tab.EC PO SCH (08:14)
[2023-05-04] MEDS: Metoprolol Tartrate 25 MG Tab PO SCH (08:14)
== END 2023-05-04 12:34 | disposition home or self-care (01) | DRG 947 ==
LOC: DL.MS 13:07 → UNDOADMIN 13:07 → DL.MS 14:42
PROVIDERS: ADMIT Internal Medicine; ATTEND Internal Medicine
DX: R53.81 Other malaise (principal); I21.4 Non-ST elevation (NSTEMI) myocardial infarction; J94.2 Hemothorax; I10 Essential (primary) hypertension; E78.5 Hyperlipidemia, unspecified; I25.10 Atherosclerotic heart disease of native coronary artery without angina pectoris; E11.51 Type 2 diabetes mellitus with diabetic peripheral angiopathy without gangrene; E78.00 Pure hypercholesterolemia, unspecified; E11.65 Type 2 diabetes mellitus with hyperglycemia; E11.40 Type 2 diabetes mellitus with diabetic neuropathy, unspecified; K21.9 Gastro-esophageal reflux disease without esophagitis; F17.210 Nicotine dependence, cigarettes, uncomplicated; Z79.82 Long term (current) use of aspirin; Z79.899 Other long term (current) drug therapy; Z89.611 Acquired absence of right leg above knee; Z79.4 Long term (current) use of insulin; Z95.5 Presence of coronary angioplasty implant and graft
CPT/HCPCS: 36415; 80053; 82947; 83735; 85025; 94060; 97110-GP; 97161-GP; 97165-GO; 97530-GO; 97530-GP; 97535-GO; 99305; 99308; 99315; A9270-GY; J1815-GY

== ENCOUNTER 2023-06-17 20:28 | Emergency (ER) | payer MEDICAID ==
[2023-06-17] MEDS ORDERED: Sodium Chloride 0.9% 10 ML Syringe FLUSH PRN (21:57)
[2023-06-17] MEDS ORDERED: Ketorolac 30 MG/ML SDV IVPUSH ONE (22:08)
[2023-06-17] MEDS ORDERED: Acetaminophen 500 MG Tab PO ONE (22:08)
[2023-06-17 22:22] LABS: EOSINOPHILS PERCENT AUTO 0.1 % (1.0-3.0); HEMATOCRIT 44.3 % (40.0-54.0); HEMOGLOBIN 14.5 g/dL (14.0-18.0); LYMPHOCYTES PERCENT AUTO 8.5 % (20.5-50.1); MEAN CORPUSCULAR HEMOGLOBIN 27.3 pg (27.0-34.0); MEAN CORPUSCULAR HGB CONC 32.7 g/dL (33.0-35.0); MEAN CORPUSCULAR VOLUME 83.3 fL (80-100); MONOCYTES PERCENT AUTO 7.2 % (2-8); NEUTROPHILS PERCENT AUTO 84.2 % (42.2-75.2); PLATELET COUNT,PLT 291 10^3/uL (150-450); RED BLOOD CELL COUNT 5.32 10^6/uL (4.6-6.2); WHITE BLOOD CELL COUNT,WBC 9.2 10^3/uL (5.0-10.0)
[2023-06-17 22:38] LABS: ALBUMIN 3.2 g/dL (3.4-5.0); ANION GAP 16.5 mEq/L (7-13); BILIRUBIN TOTAL 2.9 mg/dL (0.2-1.0); BUN/CREATININE RATIO 15.6 (No establ ref range); C-REACTIVE PROTEIN 3.01 ng/dL (<=0.30); CALCIUM 9.5 mg/dL (8.5-10.1); CREATININE 0.96 mg/dL (0.70-1.30); EST CRCL DRUG DOSING (CG) 86.45 mL/min; POTASSIUM,K 4.5 mmol/L (3.5-5.1); PROTEIN TOTAL,TP 8.9 g/dL (6.4-8.2)
[2023-06-17 22:41] LABS: LACTIC ACID 1.5 mmol/L (0.4-2.0)
[2023-06-17 22:44] LABS: A/G RATIO 0.56
[2023-06-17] MEDS ORDERED: Iopamidol 755 Mg/ML 100 ML Bottle IVPUSH ONE (23:07)
[2023-06-18] MEDS ORDERED: fentaNYL 100 MCG/2 ML SDV IVPUSH ONE (01:12)
[2023-06-18 01:31] VITALS: BP 113/66; PULSE 123
== END 2023-06-18 01:50 ==
LOC: DL.ED 20:28
DX: J43.9 Emphysema, unspecified (principal); E87.1 Hypo-osmolality and hyponatremia; R74.8 Abnormal levels of other serum enzymes; Q44.1 Other congenital malformations of gallbladder; I10 Essential (primary) hypertension; E78.00 Pure hypercholesterolemia, unspecified; E11.9 Type 2 diabetes mellitus without complications; Z79.82 Long term (current) use of aspirin; Z79.4 Long term (current) use of insulin; Z79.02 Long term (current) use of antithrombotics/antiplatelets; Z79.899 Other long term (current) drug therapy
CPT/HCPCS: 36415; 71260; 72128; 72131; 80053; 83605; 85025; 86140; 87040; 87077; 87186; 96374; 96375; 99284; 99285-25; A9270-GY; J1885; J3010; J3490; Q9967

== ENCOUNTER 2023-11-20 18:10 | Emergency (ER) | payer MEDICAID ==
[2023-11-20] MEDS: Sodium Chloride 0.9% 10 ML Syringe FLUSH PRN (18:08)
[2023-11-20 18:21] LABS: EOSINOPHILS PERCENT AUTO 0.5 % (1.0-3.0); HEMATOCRIT 41.9 % (40.0-54.0); HEMOGLOBIN 14.1 g/dL (14.0-18.0); LYMPHOCYTES PERCENT AUTO 19.9 % (20.5-50.1); MEAN CORPUSCULAR HEMOGLOBIN 28.8 pg (27.0-34.0); MEAN CORPUSCULAR HGB CONC 33.7 g/dL (33.0-35.0); MEAN CORPUSCULAR VOLUME 85.5 fL (80-100); MONOCYTES PERCENT AUTO 9.8 % (2-8); NEUTROPHILS PERCENT AUTO 69.8 % (42.2-75.2); PLATELET COUNT,PLT 215 10^3/uL (150-450); WHITE BLOOD CELL COUNT,WBC 8.3 10^3/uL (5.0-10.0)
[2023-11-20 18:30] VITALS: BP 171/75; PULSE 98
[2023-11-20 18:43] LABS: ALBUMIN 2.7 g/dL (3.4-5.0); ANION GAP 12.9 mEq/L (7-13); BILIRUBIN TOTAL 0.7 mg/dL (0.2-1.0); BUN/CREATININE RATIO 14.1 (No establ ref range); C-REACTIVE PROTEIN 7.71 ng/dL (<=0.50); CALCIUM 8.5 mg/dL (8.5-10.1); CREATININE 0.78 mg/dL (0.70-1.30); EST CRCL DRUG DOSING (CG) 105.01 mL/min; POTASSIUM,K 2.9 mmol/L (3.5-5.1); PROTEIN TOTAL,TP 7.8 g/dL (6.4-8.2)
[2023-11-20 18:45] LABS: A/G RATIO 0.53
[2023-11-20 18:46] LABS: LACTIC ACID 1.2 mmol/L (0.4-2.0)
[2023-11-20] MEDS: Potassium Chloride 10 MEQ Tab.ER PO ONE (19:05)
[2023-11-20] MEDS: Ketorolac 30 MG/ML SDV IVPUSH ONE (19:10)
[2023-11-20] MEDS: Iopamidol 612 MG/ML 100 ML Bottle IVPUSH ONE (19:47)
[2023-11-20] MEDS: Cefepime 2 GM Vial IVPUSH ONE (21:29)
[2023-11-20] MEDS: metroNIDAZOLE 250 MG Tab PO ONE (21:29)
== END 2023-11-20 22:40 ==
LOC: DL.ED 18:10
DX: M86.9 Osteomyelitis, unspecified (principal); I10 Essential (primary) hypertension; E78.00 Pure hypercholesterolemia, unspecified; E11.9 Type 2 diabetes mellitus without complications; I25.2 Old myocardial infarction; Z79.899 Other long term (current) drug therapy; Z79.82 Long term (current) use of aspirin; Z95.5 Presence of coronary angioplasty implant and graft
CPT/HCPCS: 36415; 73701; 80053; 83605; 85025; 86140; 87040; 96365; 96366; 96375; 99285; A9270; J0692; J1885; J3370; J7050; Q9967; J3490

== ENCOUNTER 2024-04-16 23:45 | Emergency (ER) | payer MEDICAID ==
[2024-04-17] MEDS: Sodium Chloride 0.9% 10 ML Syringe FLUSH PRN (00:25)
[2024-04-17 00:38] VITALS: BP 109/72; PULSE 83
[2024-04-17 00:48] LABS: BASOPHILS PERCENT AUTO 0.2 % (0.0-1.0); EOSINOPHILS PERCENT AUTO 2.6 % (1.0-3.0); HEMATOCRIT 36.2 % (40.0-54.0); HEMOGLOBIN 11.9 g/dL (14.0-18.0); LYMPHOCYTES PERCENT AUTO 26.7 % (20.5-50.1); MEAN CORPUSCULAR HEMOGLOBIN 28.3 pg (27.0-34.0); MEAN CORPUSCULAR HGB CONC 32.9 g/dL (33.0-35.0); MEAN CORPUSCULAR VOLUME 86.2 fL (80-100); MONOCYTES PERCENT AUTO 8.7 % (2-8); NEUTROPHILS PERCENT AUTO 61.8 % (42.2-75.2); PLATELET COUNT,PLT 310 10^3/uL (150-450); WHITE BLOOD CELL COUNT,WBC 6.5 10^3/uL (5.0-10.0)
[2024-04-17] MEDS: HYDROmorphone 1 MG/ML Syringe IVPUSH ONE ×2 (01:06→04:12)
[2024-04-17 01:21] LABS: ALANINE AMINOTRANSFERASE,ALT 13 U/L (16-63); ALBUMIN 2.3 g/dL (3.4-5.0); ALKALINE PHOSPHATASE 148 U/L (46-116); ANION GAP 15.4 mEq/L (7-13); ASPARTATE AMNIOTRANSFERASE,AST 9 U/L (15-37); BILIRUBIN TOTAL 0.3 mg/dL (0.2-1.0); BLOOD UREA NITROGEN,BUN 23 mg/dL (7-18); BUN/CREATININE RATIO 16.2 (No establ ref range); C-REACTIVE PROTEIN 2.04 ng/dL (<=0.50); CALCIUM 8.4 mg/dL (8.5-10.1); CARBON DIOXIDE,CO2 21 mmol/L (21-32); CHLORIDE,CL 103 mmol/L (98-107); CREATININE 1.42 mg/dL (0.70-1.30); GLUCOSE RANDOM 198 mg/dL (70-99); POTASSIUM,K 3.4 mmol/L (3.5-5.1); PROTEIN TOTAL,TP 7.7 g/dL (6.4-8.2); SODIUM,NA 136 mmol/L (136-145)
[2024-04-17 01:30] LABS: A/G RATIO 0.43; ESTIMATED GFR 55 mL/min (>=60)
[2024-04-17] MEDS: Sodium Chloride 0.9% 1,000 ML IV ONE (01:34)
[2024-04-17] MEDS: Iopamidol 612 MG/ML 100 ML Bottle IVPUSH ONE (02:18)
[2024-04-17 02:31] LABS: INR 0.9 (0.9-1.2); PROTHROMBIN TIME 9.7 SEC (9.0-12.0); PTT,PARTIAL THROMBOPLSTIN TIME 29.4 SEC (22.0-34.0)
[2024-04-17] MEDS: Piperacillin/Tazobactam 4.5 GM in Sodium Chloride 0.9% 100 ML IV ONE (04:10)
== END 2024-04-17 04:39 ==
LOC: DL.ED 23:45
DX: L03.116 Cellulitis of left lower limb (principal); J18.9 Pneumonia, unspecified organism; I10 Essential (primary) hypertension; E78.00 Pure hypercholesterolemia, unspecified; I25.2 Old myocardial infarction; E11.9 Type 2 diabetes mellitus without complications; F17.210 Nicotine dependence, cigarettes, uncomplicated; Z95.5 Presence of coronary angioplasty implant and graft; Z86.16 Personal history of COVID-19; Z79.899 Other long term (current) drug therapy; Z79.82 Long term (current) use of aspirin
CPT/HCPCS: 36415; 71045; 73620; 73701; 80053; 82550; 83605; 84145; 85025; 85610; 85651; 85730; 86140; 87040; 87070; 96361; 96365; 96367; 96375; 96376; 99285; J1170; J2543; J3370; J3490; J7030; J7050; Q9967; 87077; 87186

== ENCOUNTER 2025-06-18 21:20 | Inpatient (IN) | payer MEDICAID ==
[2025-06-18 21:38] LABS: BASOPHILS PERCENT AUTO 0.0 % (0.0-1.0); EOSINOPHILS PERCENT AUTO 0.3 % (1.0-3.0); LYMPHOCYTES PERCENT AUTO 11.5 % (20.5-50.1); MONOCYTES PERCENT AUTO 5.2 % (2-8); NEUTROPHILS PERCENT AUTO 83.0 % (42.2-75.2); PLATELET COUNT,PLT 183 10^3/uL (150-450); RED BLOOD CELL COUNT 4.67 10^6/uL (4.6-6.2); WHITE BLOOD CELL COUNT,WBC 7.6 10^3/uL (5.0-10.0)
[2025-06-18] MEDS: Ketorolac 30 MG/ML SDV IVPUSH ONE (21:48)
[2025-06-18 22:00] LABS: ALANINE AMINOTRANSFERASE,ALT 63 U/L (16-63); ASPARTATE AMNIOTRANSFERASE,AST 108 U/L (15-37); BILIRUBIN TOTAL 1.5 mg/dL (0.2-1.0); BLOOD UREA NITROGEN,BUN 8 mg/dL (7-18); CARBON DIOXIDE,CO2 29 mmol/L (21-32); CHLORIDE,CL 91 mmol/L (98-107); CREATININE 1.64 mg/dL (0.70-1.30); GLUCOSE RANDOM 168 mg/dL (70-99); POTASSIUM,K 3.8 mmol/L (3.5-5.1); PROTEIN TOTAL,TP 8.2 g/dL (6.4-8.2); SODIUM,NA 131 mmol/L (136-145)
[2025-06-18 22:02] LABS: A/G RATIO 0.49; B-TYPE NATRIURETIC PEPTIDE,BNP 218 pg/ml (0-100); ESTIMATED GFR 46 mL/min (>=60)
[2025-06-18 22:05] LABS: LACTIC ACID 5.7 mmol/L (0.4-2.0)
[2025-06-18] MEDS: Magnesium Sulfate 2 GM/50 mL 2 GM in Premix Bag 1 BAG IV ONE (22:48)
[2025-06-19 00:16] LABS: APPEARANCE,URINE CLEAR (CLEAR); GLUCOSE,URINE 250 (NEGATIVE); OCCULT BLOOD,URINE LARGE (NEGATIVE)
[2025-06-19 00:17] LABS: SQUAMOUS EPITHELIAL CELLS,UR RARE /HPF (NOT SEEN)
[2025-06-19 00:18] LABS: AMPHETAMINES,URINE NEGATIVE (NEGATIVE); BARBITURATES,URINE NEGATIVE (NEGATIVE); MDMA (ECSTASY), URINE NEGATIVE (NEGATIVE); METHAMPHETAMINES,URINE NEGATIVE (NEGATIVE); OPIATES,URINE POSITIVE (NEGATIVE); OXYCODONE,URINE NEGATIVE (NEGATIVE); PHENCYCLIDINE,URINE NEGATIVE (NEGATIVE); TCA,URINE NEGATIVE (NEGATIVE)
[2025-06-19 01:48] LABS: LACTIC ACID 3.7 mmol/L (0.4-2.0)
[2025-06-19] MEDS: Midazolam 1 MG/ML 2 ML SDV IVPUSH ONE (01:59)
[2025-06-19] MEDS ORDERED: 50% Dextrose in Water 50 ML Syringe IVPUSH PRN (03:01)
[2025-06-19] MEDS: MVI, Adult with Vitamin K 10 ML, Folic Acid 1 MG, Thiamine 100 MG in Lactated Ringers 1... IV ONE (03:40)
[2025-06-19 03:42] LABS: INR 1.0 (0.9-1.2)
[2025-06-19] MEDS: GI Cocktail Oral Solution 30 ML PO ONE (03:43)
[2025-06-19] MEDS: Multivitamins with Iron/Calcium/Folic Acid/Minerals Tab PO SCH (03:46)
[2025-06-19] MEDS: Magnesium Sulfate 2 GM/50 mL 2 GM in Premix Bag 1 BAG IV ONE (03:48)
[2025-06-19] MEDS: cloNIDine 0.1 MG/Day Transdermal Patch TRDERM SCH (03:52)
[2025-06-19 04:31] LABS: APPEARANCE,URINE CLEAR (CLEAR); GLUCOSE,URINE 250 (NEGATIVE); OCCULT BLOOD,URINE MODERATE (NEGATIVE)
[2025-06-19 04:39] LABS: SQUAMOUS EPITHELIAL CELLS,UR RARE /HPF (NOT SEEN)
[2025-06-19] MEDS: Heparin Sodium 5,000 Units/ML Vial SUBCUT SCH (05:14)
[2025-06-19 06:57] LABS: BASOPHILS PERCENT AUTO 0.2 % (0.0-1.0); EOSINOPHILS PERCENT AUTO 0.2 % (1.0-3.0); LYMPHOCYTES PERCENT AUTO 12.7 % (20.5-50.1); MONOCYTES PERCENT AUTO 5.5 % (2-8); NEUTROPHILS PERCENT AUTO 81.4 % (42.2-75.2); PLATELET COUNT,PLT 112 10^3/uL (150-450); RED BLOOD CELL COUNT 4.47 10^6/uL (4.6-6.2); WHITE BLOOD CELL COUNT,WBC 6.5 10^3/uL (5.0-10.0)
[2025-06-19 07:25] LABS: CREATINE KINASE,CK 308 U/L (39-308); PHOSPHORUS 3.9 mg/dL (2.6-4.7)
[2025-06-19 07:33] LABS: LACTIC ACID 2.7 mmol/L (0.4-2.0)
[2025-06-19 07:35] LABS: ALANINE AMINOTRANSFERASE,ALT 90.0 U/L (16-63); ASPARTATE AMNIOTRANSFERASE,AST 273.0 U/L (15-37); BILIRUBIN DIRECT 1.2 mg/dL (0.0-0.2); BILIRUBIN INDIRECT 0.8; BILIRUBIN TOTAL 2.0 mg/dL (0.2-1.0); BLOOD UREA NITROGEN,BUN 8.0 mg/dL (7-18); CARBON DIOXIDE,CO2 28.0 mmol/L (21-32); CHLORIDE,CL 95.0 mmol/L (98-107); CREATININE 1.29 mg/dL (0.70-1.30); EST CRCL DRUG DOSING (CG) 62.66 mL/min; GLUCOSE RANDOM 159.0 mg/dL (70-99); IRON,FE 121.0 ug/dL (65-175); PERCENT FE SATURATION 40.7 % (20.0-50.0); POTASSIUM,K 3.5 mmol/L (3.5-5.1); PROTEIN TOTAL,TP 7.4 g/dL (6.4-8.2); SODIUM,NA 132.0 mmol/L (136-145)
[2025-06-19 07:38] LABS: A/G RATIO 0.45; ESTIMATED GFR 62.0 mL/min (>=60)
[2025-06-19 08:18] LABS: CHOLESTEROL HDL 51 mg/dL (40-59); CHOLESTEROL TOTAL 205 mg/dL (0-199)
[2025-06-19 08:19] LABS: CHOLESTEROL LDL CALCULATED 130 mg/dL (0-100); GAMMA GLUTAMYL TRANSFERASE,GGT 615 U/L (15-85); T4 FREE 1.27 ng/dL (0.76-1.46); TSH ULTRASENSITIVE 2.31 uIU/mL (0.36-3.74)
[2025-06-19 08:33] LABS: KETONES,BLOOD NEGATIVE
[2025-06-19] MEDS: Ondansetron 4 MG/2 ML SDV IVPUSH PRN (09:02)
[2025-06-19 09:12] LABS: FOLIC ACID > 20.0 ng/mL (8.6-58.9)
[2025-06-19] MEDS: D5 1/2 NS w/ 20 mEq/L KCl 1,000 ML IV SCH (10:38)
[2025-06-19] MEDS: Lactulose Soln 10 GM/15 ML 30 ML UD Cup PO SCH (10:39)
[2025-06-20 06:47] LABS: BASOPHILS PERCENT AUTO 0.2 % (0.0-1.0); EOSINOPHILS PERCENT AUTO 2.0 % (1.0-3.0); LYMPHOCYTES PERCENT AUTO 15.5 % (20.5-50.1); MONOCYTES PERCENT AUTO 8.6 % (2-8); NEUTROPHILS PERCENT AUTO 73.7 % (42.2-75.2); PLATELET COUNT,PLT 82 10^3/uL (150-450); RED BLOOD CELL COUNT 3.83 10^6/uL (4.6-6.2); WHITE BLOOD CELL COUNT,WBC 6.5 10^3/uL (5.0-10.0)
[2025-06-20 07:05] LABS: ALANINE AMINOTRANSFERASE,ALT 119.0 U/L (16-63); ASPARTATE AMNIOTRANSFERASE,AST 386.0 U/L (15-37); BILIRUBIN DIRECT 1.8 mg/dL (0.0-0.2); BILIRUBIN INDIRECT 0.7; BILIRUBIN TOTAL 2.5 mg/dL (0.2-1.0); BLOOD UREA NITROGEN,BUN 11.0 mg/dL (7-18); CARBON DIOXIDE,CO2 32.0 mmol/L (21-32); CHLORIDE,CL 98.0 mmol/L (98-107); CREATININE 1.61 mg/dL (0.70-1.30); EST CRCL DRUG DOSING (CG) 50.21 mL/min; GLUCOSE RANDOM 126.0 mg/dL (70-99); POTASSIUM,K 4.4 mmol/L (3.5-5.1); PROTEIN TOTAL,TP 6.0 g/dL (6.4-8.2); SODIUM,NA 132.0 mmol/L (136-145)
[2025-06-20 07:10] LABS: A/G RATIO 0.46; ESTIMATED GFR 47.0 mL/min (>=60)
[2025-06-20] MEDS: GI Cocktail Oral Solution 30 ML PO ONE (09:37)
[2025-06-20] MEDS: Sucralfate Suspension 1 GM/10 ML Cup PO SCH (10:30)
[2025-06-20] MEDS: Furosemide 40 MG/4 ML VIAL IVPUSH ONE (13:04)
[2025-06-20 16:38] LABS: APPEARANCE,URINE CLEAR (CLEAR); GLUCOSE,URINE 100 (NEGATIVE); OCCULT BLOOD,URINE TRACE-LYSED (NEGATIVE)
[2025-06-20 17:02] LABS: EPITHELIAL CELLS,URINE OCCASIONAL /HPF (NOT SEEN)
[2025-06-21 06:51] LABS: BASOPHILS PERCENT AUTO 0.1 % (0.0-1.0); EOSINOPHILS PERCENT AUTO 3.8 % (1.0-3.0); LYMPHOCYTES PERCENT AUTO 15.9 % (20.5-50.1); MONOCYTES PERCENT AUTO 8.0 % (2-8); NEUTROPHILS PERCENT AUTO 72.2 % (42.2-75.2); PLATELET COUNT,PLT 79 10^3/uL (150-450); RED BLOOD CELL COUNT 3.75 10^6/uL (4.6-6.2); WHITE BLOOD CELL COUNT,WBC 8.5 10^3/uL (5.0-10.0)
[2025-06-21 07:16] LABS: ALANINE AMINOTRANSFERASE,ALT 87.0 U/L (16-63); ASPARTATE AMNIOTRANSFERASE,AST 123.0 U/L (15-37); BILIRUBIN DIRECT 0.6 mg/dL (0.0-0.2); BILIRUBIN INDIRECT 0.4; BILIRUBIN TOTAL 1.0 mg/dL (0.2-1.0); BLOOD UREA NITROGEN,BUN 17.0 mg/dL (7-18); CARBON DIOXIDE,CO2 30.0 mmol/L (21-32); CHLORIDE,CL 100.0 mmol/L (98-107); CREATININE 2.07 mg/dL (0.70-1.30); EST CRCL DRUG DOSING (CG) 39.05 mL/min; GLUCOSE RANDOM 114.0 mg/dL (70-99); PHOSPHORUS 3.5 mg/dL (2.6-4.7); POTASSIUM,K 3.9 mmol/L (3.5-5.1); PROTEIN TOTAL,TP 6.4 g/dL (6.4-8.2); SODIUM,NA 135.0 mmol/L (136-145)
[2025-06-21 07:22] LABS: A/G RATIO 0.45; ESTIMATED GFR 35.0 mL/min (>=60)
[2025-06-21] MEDS: Ampicillin/Sulbactam Na 3 GM in Sodium Chloride 0.9% 100 ML IV SCH (12:10)
[2025-06-21] MEDS: D5 1/2 NS w/ 10 mEq/L KCl 1,000 ML IV SCH (12:12)
[2025-06-22 05:42] LABS: IONIZED CA@PH7.4 1.23 mmol/L (1.09-1.30); IONIZED CALCIUM 1.11 mmol/L (1.09-1.30)
[2025-06-22 06:33] LABS: BASOPHILS PERCENT AUTO 0.2 % (0.0-1.0); EOSINOPHILS PERCENT AUTO 5.3 % (1.0-3.0); LYMPHOCYTES PERCENT AUTO 13.3 % (20.5-50.1); MONOCYTES PERCENT AUTO 12.8 % (2-8); NEUTROPHILS PERCENT AUTO 68.4 % (42.2-75.2); PLATELET COUNT,PLT 85 10^3/uL (150-450); RED BLOOD CELL COUNT 3.52 10^6/uL (4.6-6.2); WHITE BLOOD CELL COUNT,WBC 6.6 10^3/uL (5.0-10.0)
[2025-06-22 06:50] LABS: A/G RATIO 0.42; ALANINE AMINOTRANSFERASE,ALT 65.0 U/L (16-63); ASPARTATE AMNIOTRANSFERASE,AST 77.0 U/L (15-37); BILIRUBIN DIRECT 0.4 mg/dL (0.0-0.2); BILIRUBIN INDIRECT 0.2; BILIRUBIN TOTAL 0.6 mg/dL (0.2-1.0); BLOOD UREA NITROGEN,BUN 16.0 mg/dL (7-18); CARBON DIOXIDE,CO2 30.0 mmol/L (21-32); CHLORIDE,CL 101.0 mmol/L (98-107); CREATININE 1.78 mg/dL (0.70-1.30); EST CRCL DRUG DOSING (CG) 45.41 mL/min; ESTIMATED GFR 42.0 mL/min (>=60); GLUCOSE RANDOM 148.0 mg/dL (70-99); POTASSIUM,K 3.9 mmol/L (3.5-5.1); PROTEIN TOTAL,TP 6.1 g/dL (6.4-8.2); SODIUM,NA 134.0 mmol/L (136-145)
[2025-06-22 12:42] LABS: HAV AB IGM Negative (Negative); HBC IGM Negative (Negative); HEP B SURG AG Negative (Negative); HEP C AB BY CIA High Pos (Negative); HEP C AB BY CIA INDEX >11.00 IV
[2025-06-23 06:21] LABS: BASOPHILS PERCENT AUTO 0.2 % (0.0-1.0); EOSINOPHILS PERCENT AUTO 6.4 % (1.0-3.0); LYMPHOCYTES PERCENT AUTO 16.7 % (20.5-50.1); MONOCYTES PERCENT AUTO 15.9 % (2-8); NEUTROPHILS PERCENT AUTO 60.8 % (42.2-75.2); PLATELET COUNT,PLT 110 10^3/uL (150-450); RED BLOOD CELL COUNT 3.54 10^6/uL (4.6-6.2); WHITE BLOOD CELL COUNT,WBC 5.0 10^3/uL (5.0-10.0)
[2025-06-23 06:35] LABS: BLOOD UREA NITROGEN,BUN 11.0 mg/dL (7-18); CARBON DIOXIDE,CO2 30.0 mmol/L (21-32); CHLORIDE,CL 103.0 mmol/L (98-107); CREATININE 1.42 mg/dL (0.70-1.30); EST CRCL DRUG DOSING (CG) 56.92 mL/min; GLUCOSE RANDOM 117.0 mg/dL (70-99); POTASSIUM,K 4.1 mmol/L (3.5-5.1); SODIUM,NA 137.0 mmol/L (136-145)
[2025-06-23 06:45] LABS: ESTIMATED GFR 55.0 mL/min (>=60)
[2025-06-23] MEDS: Metoprolol Tartrate 5 MG/5 ML SDV IVPUSH SCH ×2 (17:12→18:24)
[2025-06-23 17:47] LABS: HEP C QNT BY NAAT (IU/mL) Not Detected; HEP C QNT BY NAAT (log IU/mL) Not Detected log IU/mL; HEP C QNT BY NAAT INTERP Not Detected (Not Detected)
[2025-06-23] MEDS: Lactulose Soln 10 GM/15 ML 30 ML UD Cup PO SCH (20:46)
[2025-06-24] MEDS ORDERED: Sennosides/Docusate Sodium 50-8.6 MG Tab PO PRN (12:00)
[2025-06-24] MEDS ORDERED: Magnesium Hydroxide 400 MG/5 ML Susp 30 ML Cup PO PRN (12:00)
[2025-06-24] MEDS: Acetaminophen/oxyCODONE 325-5 MG Tab PO PRN (12:13)
[2025-06-25 06:34] LABS: BASOPHILS PERCENT AUTO 0.2 % (0.0-1.0); EOSINOPHILS PERCENT AUTO 6.1 % (1.0-3.0); LYMPHOCYTES PERCENT AUTO 23.3 % (20.5-50.1); MONOCYTES PERCENT AUTO 17.6 % (2-8); NEUTROPHILS PERCENT AUTO 52.8 % (42.2-75.2); PLATELET COUNT,PLT 165 10^3/uL (150-450); RED BLOOD CELL COUNT 3.62 10^6/uL (4.6-6.2); WHITE BLOOD CELL COUNT,WBC 4.7 10^3/uL (5.0-10.0)
[2025-06-25 07:11] LABS: ALANINE AMINOTRANSFERASE,ALT 38.0 U/L (16-63); ASPARTATE AMNIOTRANSFERASE,AST 35.0 U/L (15-37); BILIRUBIN TOTAL 0.4 mg/dL (0.2-1.0); BLOOD UREA NITROGEN,BUN 9.0 mg/dL (7-18); CARBON DIOXIDE,CO2 27.0 mmol/L (21-32); CREATININE 1.45 mg/dL (0.70-1.30); EST CRCL DRUG DOSING (CG) 55.75 mL/min; GLUCOSE RANDOM 142.0 mg/dL (70-99); PROTEIN TOTAL,TP 6.1 g/dL (6.4-8.2)
[2025-06-25 07:16] LABS: CHLORIDE,CL 103.0 mmol/L (98-107); POTASSIUM,K 4.2 mmol/L (3.5-5.1); SODIUM,NA 137.0 mmol/L (136-145)
[2025-06-25 07:25] LABS: A/G RATIO 0.39; ESTIMATED GFR 53.0 mL/min (>=60)
[2025-06-25] MEDS ORDERED: Non-Formulary Medication 1 Each (Ergocalciferol (Vitamin D2) [Vitamin D2] 50 MCG Capsule) PO SCH (09:00)
[2025-06-25 11:47] VITALS: BP 126/73; PULSE 61
== END 2025-06-25 13:15 | disposition home or self-care (01) | DRG 896 ==
LOC: DL.ED 21:20 → DL.MS 06-19 01:54 → EEVIPCON 06-19 01:54 → DL.MS 06-22 15:40
PROVIDERS: ADMIT Internal Medicine; ATTEND Internal Medicine
DX: E11.621 Type 2 diabetes mellitus with foot ulcer (principal); R31.9 Hematuria, unspecified; I10 Essential (primary) hypertension; F10.239 Alcohol dependence with withdrawal, unspecified; R74.02 Elevation of levels of lactic acid dehydrogenase [LDH]; F10.231 Alcohol dependence with withdrawal delirium; G93.41 Metabolic encephalopathy; J69.0 Pneumonitis due to inhalation of food and vomit; E87.1 Hypo-osmolality and hyponatremia; E87.20 Acidosis, unspecified; N17.9 Acute kidney failure, unspecified; I13.0 Hypertensive heart and chronic kidney disease with heart failure and stage 1 through stage 4 chronic kidney disease, or unspecified chronic kidney disease; I50.9 Heart failure, unspecified; E11.22 Type 2 diabetes mellitus with diabetic chronic kidney disease; N18.9 Chronic kidney disease, unspecified; E78.00 Pure hypercholesterolemia, unspecified; F17.200 Nicotine dependence, unspecified, uncomplicated; E86.0 Dehydration; E83.42 Hypomagnesemia; E83.52 Hypercalcemia; E80.6 Other disorders of bilirubin metabolism; I16.0 Hypertensive urgency; K70.40 Alcoholic hepatic failure without coma; E11.40 Type 2 diabetes mellitus with diabetic neuropathy, unspecified; E11.65 Type 2 diabetes mellitus with hyperglycemia; D69.6 Thrombocytopenia, unspecified; E11.51 Type 2 diabetes mellitus with diabetic peripheral angiopathy without gangrene; K29.20 Alcoholic gastritis without bleeding; K70.10 Alcoholic hepatitis without ascites; D63.8 Anemia in other chronic diseases classified elsewhere; B19.20 Unspecified viral hepatitis C without hepatic coma; Z89.432 Acquired absence of left foot; Z89.431 Acquired absence of right foot; Z79.82 Long term (current) use of aspirin; I25.2 Old myocardial infarction; Z95.5 Presence of coronary angioplasty implant and graft; Z79.899 Other long term (current) drug therapy; Z79.02 Long term (current) use of antithrombotics/antiplatelets
CPT/HCPCS: 36415 ×2; 71045; 73630; 74176; 80053; 80305; 80307; 81001; 83605 ×2; 83690; 83735; 83880; 84484; 85025; 85610; 93005; 93010; 96365; 96366; 96375 ×2; 96376; 99284; 99285; A9270; J0696; J1885; J2270 ×2; J3475; J7030; Q0144; 71250; 80048; 80061; 80074; 80076; 80143; 82009; 82140; 82272; 82330; 82550; 82607; 82746; 82947; 82977; 83036; 83540; 83550; 84100; 84145; 84439; 84443; 86140; 86592; 87522; 92610-GN; J0295; J0612; J1171; J1644; J1808; J1815-GY; J1938; J2250; J2405; J2470; J3411; J3480; J3490; J7120; U0002

== ENCOUNTER 2025-07-20 08:20 | Emergency (ER) | payer MEDICAID ==
[2025-07-20 08:41] LABS: BASOPHILS PERCENT AUTO 0.3 % (0.0-1.0); EOSINOPHILS PERCENT AUTO 2.6 % (1.0-3.0); LYMPHOCYTES PERCENT AUTO 15.8 % (20.5-50.1); MONOCYTES PERCENT AUTO 7.5 % (2-8); NEUTROPHILS PERCENT AUTO 73.8 % (42.2-75.2); PLATELET COUNT,PLT 180 10^3/uL (150-450); RED BLOOD CELL COUNT 4.33 10^6/uL (4.6-6.2); WHITE BLOOD CELL COUNT,WBC 7.0 10^3/uL (5.0-10.0)
[2025-07-20 08:52] LABS: APPEARANCE,URINE CLEAR (CLEAR); GLUCOSE,URINE 500 (NEGATIVE); OCCULT BLOOD,URINE MODERATE (NEGATIVE)
[2025-07-20 08:55] LABS: INR 0.9 (0.9-1.2)
[2025-07-20 09:00] LABS: ALANINE AMINOTRANSFERASE,ALT 42.0 U/L (16-63); ASPARTATE AMNIOTRANSFERASE,AST 36.0 U/L (15-37); BILIRUBIN DIRECT 0.4 mg/dL (0.0-0.2); BILIRUBIN INDIRECT 0.4; BILIRUBIN TOTAL 0.8 mg/dL (0.2-1.0); BLOOD UREA NITROGEN,BUN 16.0 mg/dL (7-18); CARBON DIOXIDE,CO2 24.0 mmol/L (21-32); CHLORIDE,CL 98.0 mmol/L (98-107); CREATININE 1.93 mg/dL (0.70-1.30); EST CRCL DRUG DOSING (CG) 41.88 mL/min; GLUCOSE RANDOM 286.0 mg/dL (70-99); POTASSIUM,K 3.9 mmol/L (3.5-5.1); PROTEIN TOTAL,TP 7.7 g/dL (6.4-8.2); SODIUM,NA 132.0 mmol/L (136-145)
[2025-07-20 09:09] LABS: A/G RATIO 0.54; ESTIMATED GFR 38.0 mL/min (>=60)
[2025-07-20 09:10] LABS: EPITHELIAL CELLS,URINE RARE /HPF (NOT SEEN)
[2025-07-20] MEDS: Ondansetron 4 MG/2 ML SDV IVPUSH ONE (09:45)
[2025-07-20] MEDS: Ondansetron 4 MG/2 ML SDV ONE (09:45)
[2025-07-20] MEDS: Iopamidol 612 MG/ML 100 ML Bottle IVPUSH ONE (09:55)
[2025-07-20 10:07] VITALS: PULSE 100
[2025-07-20 10:58] VITALS: BP 144/77
== END 2025-07-20 11:10 | disposition home or self-care (01) ==
LOC: DL.ED 08:20
DX: R10.A3 Flank pain, bilateral (principal); E78.00 Pure hypercholesterolemia, unspecified; I10 Essential (primary) hypertension; I25.2 Old myocardial infarction; E11.9 Type 2 diabetes mellitus without complications; Z86.16 Personal history of COVID-19; Z95.5 Presence of coronary angioplasty implant and graft; Z79.02 Long term (current) use of antithrombotics/antiplatelets; Z79.899 Other long term (current) drug therapy; Z79.82 Long term (current) use of aspirin
CPT/HCPCS: 36415; 74177; 80048; 80076; 81001; 82150; 83690; 85025; 85610; 96361; 96374; 96375; 99284; J2405; J7030; Q9967; J1171